=== PATIENT | male | born 1955 | race Caucasian/White ===

== ENCOUNTER 2017-12-25 01:39 | Inpatient (IN) | payer OTHER ==
[2017-12-25] VITALS (13 sets, daily range): BP systolic 136–174; BP diastolic 85–112; PULSE 75–87; TEMP 36.4–37.1; O2SAT 90–96; Ht 177.8 cm; Wt 70.4 kg
[~2017-12-25] VITALS: Ht 177.8 cm; Wt 70.4 kg
[~2017-12-25 01:39] MED LIST: ALPR1TAB3 PO; CMBIN INH; IBUP-1428 PO; OXYC20TA32 PO; TRIA0.1C20 TOP
[2017-12-25] MEDS ORDERED: SODIUM CHLORIDE 0.9% 1000ML 1,000 ML IV STA ×2 (01:51)
[2017-12-25] MEDS ORDERED: MoRPHine SULFATE 4 MG/ML 1 ML CARP\\VIAL IV STA ×2 (01:57→03:13)
[2017-12-25] MEDS ORDERED: ONDANSETRON INJ 2 MG/ML 2 ML VIAL IV STA (01:57)
[2017-12-25] MEDS ORDERED: ALBUT/IPRATROP 3MG/0.5MG NEB 3 ML VIAL INH STA (01:57)
[2017-12-25 02:00] LABS: BASO % 0.2 %; BASO ABS # 0.02 K/uL (0-0.2); EOS % 3.1 %; EOS ABS # 0.26 K/uL (0-0.5); HEMATOCRIT 41.6 % (42-52); HEMOGLOBIN 14.6 g/dL (14.0-18.0); IG# 0.02 K/uL (0.00-0.02); LYMPH ABS # 2.67 K/uL (1.2-3.4); MEAN CELL VOLUME 94.5 fL (80-100); MEAN CORPUSCULAR HEMOGLOBIN 33.2 pg (25-34); MEAN CORPUSCULAR HGB CONC 35.1 g/dl (32-36); MEAN PLATELET VOLUME 10.8 fL (7.4-10.4); MONO % 9.2 %; MONO ABS # 0.77 K/uL (0.11-0.59); NEUT % 55.3 %; PLATELET COUNT 190 K/uL (130-400); RED CELL DISTRIBUTION WIDTH CV 13.8 % (11.5-14.5); RED CELL DISTRIBUTION WIDTH SD 47.6 fL (36.4-46.3); WHITE BLOOD COUNT 8.34 K/uL (4.8-10.8)
[2017-12-25 02:09] LABS: PTT PATIENT 26.2 SECONDS (21.0-31.0)
[2017-12-25 02:17] LABS: ISTAT CREATININE 0.9 mg/dl (0.6-1.3); ISTAT IONIZED CALCIUM 1.13 mmol/l (1.12-1.32); ISTAT POTASSIUM 3.6 mEq/L (3.3-5.0)
[2017-12-25 02:34] LABS: ALKALINE PHOSPHATASE 223 U/L (45-117); ALT/SGPT 157 U/L (12-78); AST/SGOT 196 U/L (15-37); BLOOD UREA NITROGEN 16 mg/dl (7-18); CALCIUM 8.6 mg/dl (8.5-10.1); CARBON DIOXIDE 22 mmol/L (21-32); CREATININE 0.95 mg/dl (0.60-1.40); GLUCOSE 87 mg/dl (70-99); LIPASE 96 U/L (73-393); POTASSIUM 3.5 mmol/L (3.5-5.1); SODIUM 137 mmol/L (136-145); TOTAL PROTEIN 8.1 gm/dl (6.4-8.2)
[2017-12-25] MEDS ORDERED: OPTIRAY 320 IV PRN (03:00)
--- NOTE | 2017-12-25 03:57 | EMERGENCY ROOM VISIT NOTE ---
History First contact with patient: 01:40 Chief Complaint: ABDOMINAL PAIN Stated Complaint: ABDOMINAL PAIN Nursing Triage Summary: refer to triage note History of Present Illness The patient is a 62 year old male who presents to the Emergency Room with complaints of severe worsening abdominal pain for the past several weeks that got worse the past few days who has a history of chronic abdominal pain with multiple abdominal surgeries. Patient also complains of gross hemoptysis for the past day starting early this morning. Patient states he started off with coughing up sputum and then it was been straight blood all day. Patient does smoke. No recent alcohol. No history of GI bleeding in the past. Patient denies nausea, vomiting, diarrhea, chest pain, dyspnea, fever, chills. No risk factors for TB. Patient denies night sweats and weight loss. No prior evaluations for lung carcinoma. No history of blood clots and no recent travel. No leg pain or swelling. Review of Systems An 10 system review of systems was completed with positives and pertinent negatives listed in the HPI. Past Medical/Surgical History Medical Problems: (1) ALCOH DEP NEC/NOS-UNSPEC (2) ALCOHOL WITHDRAWAL (3) ANXIETY STATE NOS (4) ASTHMA, UNSPECIFIED (5) DEPRESSIVE DISORDER NEC (6) DRUG ABUSE NEC-UNSPEC (7) HEPATITIS A W/O COMA (8) HTN (hypertension) (9) MIGRAINE UNSPECIFIED W/O INTRACTABLE MIGRAINE (10) OPIOID ABUSE-UNSPEC Surgical Problems: (1) S/P appendectomy (2) S/P cholecystectomy (3) S/P colostomy (4) S/P colostomy reversal Family History Patient reports no known family medical history. Social History Smoking Status: Current Every Day Smoker Alcohol Use: heavy Drug Use: none Marital Status: single, Housing Status: lives alone Occupation Status: unemployed, disabled Current/Historical Medications No Active Prescriptions or Reported Meds Physical Exam Vital Signs Date Time Temp Pulse Resp B/P (MAP) Pulse Ox O2 Delivery O2 Flow Rate FiO2 12/25/17 03:00 89 18 144/85 92 Room Air 12/25/17 01:50 37.2 95 18 150/96 95 Room Air 12/25/17 01:46 94 Room Air 12/25/17 01:45 103 Physical Exam VITALS: Vitals are noted on the nurse's note and reviewed by myself. Vital signs stable. GENERAL: White male coughing up gross hemoptysis in front of me, in no acute distress, nondiaphoretic, well-developed well-nourished. SKIN: The skin was without rashes, erythema, edema, or bruising. There is no tenting of the skin. Capillary reflex less than 2 seconds. HEAD: Normocephalic atraumatic. EARS: External auditory canals clear, tympanic membranes pearly shipley without erythema or effusion bilaterally. EYES: Pupils equal round and reactive to light and accommodation. Conjunctivae without injection, sclerae without icterus. Extraocular movements intact. NOSE: Patent, turbinates without inflammation or discharge. No sinus tenderness. MOUTH: Mucous membranes mildly dry pharynx without erythema or exudate. Uvula midline. Airway patent. Tongue does not deviate. NECK: Supple without nuchal rigidity. No lymphadenopathy. No thyromegaly. Cervical spine is nontender. No JVD. HEART: Regular rate and rhythm without murmurs gallops or rubs. LUNGS: Diffuse inspiratory and end expiratory wheezes, without rales or rhonchi. No retractions or accessory muscle use. ABDOMEN: Positive bowel sounds x 4. Normal tympanic percussion. Soft, multiple incisional scars present and patient is diffusely tender to palpation, without masses or organomegaly. Chaudhari sign negative. No guarding or rebound tenderness. No CVA tenderness MUSCULOSKELETAL: No muscle atrophy, erythema, or edema noted. NEURO: Patient was alert and oriented to person place and time. Normal sensation to light and sharp touch. No focal neurological deficits. Medical Decision & Procedures Laboratory Results 12/25/17 01:19 Red Blood Count 4.40, Mean Corpuscular Volume 94.5, Mean Corpuscular Hemoglobin 33.2, Mean Corpuscular Hemoglobin Concent 35.1, Mean Platelet Volume 10.8, Neutrophils (%) (Auto) 55.3, Lymphocytes (%) (Auto) 32.0, Monocytes (%) (Auto) 9.2, Eosinophils (%) (Auto) 3.1, Basophils (%) (Auto) 0.2, Neutrophils # (Auto) 4.60, Lymphocytes # (Auto) 2.67, Monocytes # (Auto) 0.77, Eosinophils # (Auto) 0.26, Basophils # (Auto) 0.02 12/25/17 01:19 Test 12/25/17 01:19 12/25/17 01:59 12/25/17 02:03 12/25/17 03:10 White Blood Count 8.34 K/uL (4.8-10.8) Red Blood Count 4.40 M/uL (4.7-6.1) Hemoglobin 14.6 g/dL (14.0-18.0) Hematocrit 41.6 % (42-52) Mean Corpuscular Volume 94.5 fL (80-100) Mean Corpuscular Hemoglobin 33.2 pg (25-34) Mean Corpuscular Hemoglobin Concent 35.1 g/dl (32-36) Platelet Count 190 K/uL (130-400) Mean Platelet Volume 10.8 fL (7.4-10.4) Neutrophils (%) (Auto) 55.3 % Lymphocytes (%) (Auto) 32.0 % Monocytes (%) (Auto) 9.2 % Eosinophils (%) (Auto) 3.1 % Basophils (%) (Auto) 0.2 % Neutrophils # (Auto) 4.60 K/uL (1.4-6.5) Lymphocytes # (Auto) 2.67 K/uL (1.2-3.4) Monocytes # (Auto) 0.77 K/uL (0.11-0.59) Eosinophils # (Auto) 0.26 K/uL (0-0.5) Basophils # (Auto) 0.02 K/uL (0-0.2) RDW Standard Deviation 47.6 fL (36.4-46.3) RDW Coefficient of Variation 13.8 % (11.5-14.5) Immature Granulocyte % (Auto) 0.2 % Immature Granulocyte # (Auto) 0.02 K/uL (0.00-0.02) Prothrombin Time 10.8 SECONDS (9.0-12.0) Prothromb Time International Ratio 1.0 (0.9-1.1) Activated Partial Thromboplast Time 26.2 SECONDS (21.0-31.0) Partial Thromboplastin Ratio 1.0 Estimated GFR () 99.7 Estimated GFR (Non- 86.1 BUN/Creatinine Ratio 17.1 (10-20) Calcium Level 8.6 mg/dl (8.5-10.1) Total Bilirubin 1.2 mg/dl (0.2-1) Direct Bilirubin 0.5 mg/dl (0-0.2) Aspartate Amino Transf (AST/SGOT) 196 U/L (15-37) Alanine Aminotransferase (ALT/SGPT) 157 U/L (12-78) Alkaline Phosphatase 223 U/L (45-117) Lactate Dehydrogenase 229 U/L (87-241) Troponin I < 0.015 ng/ml (0-0.045) Total Protein 8.1 gm/dl (6.4-8.2) Albumin 3.0 gm/dl (3.4-5.0) Lipase 96 U/L (73-393) Bedside Lactic Acid Venous 1.32 mmol/L (0.90-1.70) Bedside Hemoglobin 15.0 g/dl (14.0-18.0) Bedside Hematocrit 44 % (42-52) Bedside Sodium 139 mEq/L (135-144) Bedside Potassium 3.6 mEq/L (3.3-5.0) Bedside Chloride 104 mEq/L (101-112) Bedside Total CO2 22 mEq/l (24-31) Anion Gap 18.0 mmol/L (16-25) Bedside Blood Urea Nitrogen 18 mg/dl (7-18) Bedside Creatinine 0.9 mg/dl (0.6-1.3) Bedside Glucose (other) 93 mg/dl (70-99) Bedside Ionized Calcium (Michelle) 1.13 mmol/l (1.12-1.32) Medications Administered Medications (Trade) Dose Ordered Sig/Norah Route Start Time Stop Time Status Last Admin Dose Admin Sodium Chloride 1,000 ml @ 999 mls/hr Q1H1M STAT IV 12/25/17 01:51 12/25/17 02:51 DC 12/25/17 02:13 999 MLS/HR Albuterol/ Ipratropium (Duoneb) 3 ml NOW STAT INH 12/25/17 01:57 12/25/17 01:58 DC 12/25/17 02:13 3 ML Morphine Sulfate (MoRPHine SULFATE INJ) 4 mg NOW STAT IV 12/25/17 01:57 12/25/17 01:58 DC 12/25/17 02:14 4 MG Ondansetron HCl (Zofran Inj) 4 mg NOW STAT IV 12/25/17 01:57 12/25/17 01:58 DC 12/25/17 02:13 4 MG ED Course Prior records/ancillary studies reviewed. Triage Nursing notes reviewed. Additional history obtained from EMS The patient's history was concerning for hemoptysis and abdominal pain. Differential diagnosis: Etiologies such as lung cancer, PE, TB, airway diseases, diverticulitis, PUD, biliary pathology, UTI, pancreatitis, obstruction, mesenteric ischemia, aortic pathology, infections, inflammatory bowel disease, renal colic, as well as others were entertained. Physical examination findings: As above. ER treatment provided: Morphine, Zofran, n.p.o., IV fluids On reassessment the patient felt better. Diagnostics interpreted by me: ECG: Normal sinus, normal intervals, no acute ST-T wave changes, rate of 94. Left anterior fascicular block. Impression normal sinus rhythm respiratory myself The labs revealed stable H&H. Elevated LFTs. Normal coags. Hepatitis panel sent Imaging studies: Chest x-ray with no free air, pneumothorax or consolidation per my interpretation CT of the chest abdomen and pelvis concerning for bowel obstruction per stat radiology Consultation: A consultation was placed with the hospitalist, Dr. Gale's resident. The case was discussed and diagnostics were reviewed. The patient was evaluated in the ER for further treatment. Exam and history seem consistent with gross hemoptysis and small bowel obstruction. Patient states he had a normal bowel movement today. NG tube deferred to the admitting team per their request. Patient is stable H&H. No pneumonia or PE on CAT scan. He does not have an extensive history of smoking. Patient agrees to treatment plan of admission. He was placed n.p.o. He was hydrated as above. By the evaluation outlined above emergent etiologies such as appendicitis, diverticulitis, PUD, biliary pathology, UTI, pancreatitis, mesenteric ischemia, aortic pathology,inflammatory bowel disease, renal colic, as well as others were deemed relatively unlikely. The pt informed about the findings as listed above. All questions were answered and pleased with the treatment. Case reviewed with my attending The chart was completed utilizing [employer] voice recognition software. Grammatical errors, random word insertions, pronoun errors, and incomplete sentences are an occassional consequence of this system due to software limitations, ambient noise, and hardware issues. Any formal questions or concerns about the content, text, or information contained within the body of this dictation should be directly addressed to the physician optometrist assistant for clarification. Medical Decision As above Medication Reconcilliation Current Medication List: was personally reviewed by me Blood Pressure Screening Patient's blood pressure: Normal blood pressure Impression Primary Impression: Small bowel obstruction Additional Impression: Hemoptysis Departure Information Dispostion Being Evaluated By Hospitalist Condition FAIR Prescriptions No Active Prescriptions or Reported Meds Referrals No Doctor, Assigned (PCP) Patient Instructions My [facility] Problem Qualifiers
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
[2017-12-25] MEDS ORDERED: MAGNESIUM HYDROXIDE SUSP 30 ML UDC PO PRN (05:30)
[2017-12-25] MEDS ORDERED: ONDANSETRON INJ 2 MG/ML 2 ML VIAL IV PRN (05:30)
[2017-12-25] MEDS ORDERED: POLYETHYLENE (MIRALAX) 17 GM PACK PO PRN (05:30)
[2017-12-25] MEDS ORDERED: ALUMINUM/MAGNESIUM/SIMETH (MAALOX MAX) 30 ML UDC PO PRN (05:30)
[2017-12-25] MEDS ORDERED: NITROGLYCERIN 0.4 MG SL PER TAB CHARGE SL PRN (05:30)
[2017-12-25 06:22] LABS: BASO % 0.3 %; BASO ABS # 0.03 K/uL (0-0.2); EOS % 1.8 %; EOS ABS # 0.18 K/uL (0-0.5); HEMATOCRIT 38.8 % (42-52); HEMOGLOBIN 13.5 g/dL (14.0-18.0); IG# 0.03 K/uL (0.00-0.02); LYMPH % 25.7 %; LYMPH ABS # 2.52 K/uL (1.2-3.4); MEAN CELL VOLUME 95.6 fL (80-100); MEAN CORPUSCULAR HEMOGLOBIN 33.3 pg (25-34); MEAN CORPUSCULAR HGB CONC 34.8 g/dl (32-36); MEAN PLATELET VOLUME 10.1 fL (7.4-10.4); MONO % 8.3 %; MONO ABS # 0.81 K/uL (0.11-0.59); NEUT % 63.6 %; NEUT ABS # 6.23 K/uL (1.4-6.5); PLATELET COUNT 155 K/uL (130-400); RED CELL DISTRIBUTION WIDTH CV 13.9 % (11.5-14.5); RED CELL DISTRIBUTION WIDTH SD 48.6 fL (36.4-46.3)
[2017-12-25] MEDS ORDERED: PANTOprazole INJ 80 MG in DEXTROSE 5% 100ML IV ONE (06:30)
[2017-12-25] MEDS ORDERED: LORAZEPAM 2 MG/ML 1 ML VIAL IV PRN (06:30)
[2017-12-25 06:40] LABS: ALBUMIN 2.8 gm/dl (3.4-5.0); CALCIUM 7.9 mg/dl (8.5-10.1); CREATININE 0.87 mg/dl (0.60-1.40); POTASSIUM 3.7 mmol/L (3.5-5.1); TOTAL PROTEIN 7.3 gm/dl (6.4-8.2)
[2017-12-25] MEDS ORDERED: PIPERACILL/TAZOBAC CONSULT ACTIVE PRN (06:45)
[2017-12-25] MEDS ORDERED: PANTOprazole INJ 40 MG in DEXTROSE 5% 100ML IV SCH (06:45)
[2017-12-25] MEDS ORDERED: PIPERACILLIN/TAZOBACTAM 4.5 GM/100ML D5W IV STA (06:52)
--- NOTE | 2017-12-25 07:14 | DIAGNOSTIC IMAGING REPORT ---
CHEST ONE VIEW PORTABLE CLINICAL HISTORY: 62 years-old Male presenting with gross hemoptysis. TECHNIQUE: Portable upright AP view of the chest was obtained. COMPARISON: 09/26/2011 and 02/12/2012. FINDINGS: Cardiomediastinal silhouette normal. Lungs and pleural spaces clear. Postsurgical changes of the left bony glenoid, unchanged. Upper abdomen normal. IMPRESSION: 1. No acute cardiopulmonary disease. Electronically signed by: Jakob Gillette M.D. 12/25/2017 7:12 AM Dictated Date/Time: 12/25/2017 7:11 AM
--- NOTE | 2017-12-25 07:26 | DIAGNOSTIC IMAGING REPORT ---
ABD/PELVIS IV CONTRAST ONLY CLINICAL HISTORY: 62 years-old Male presenting with lower abd pain, mult ORs. TECHNIQUE: Multidetector CT of the abdomen and pelvis was performed after the administration of intravenous contrast. IV contrast: 94 mL of Optiray 320. A dose lowering technique was used consistent with the principles of ALARA (as low as reasonably achievable). COMPARISON: 04/26/2014. CT DOSE (mGy.cm): The estimated cumulative dose is 571.13 inclusive of the CTA chest. 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 Lung bases: Bronchial wall thickening. No focal infiltrate. Trace emphysematous changes. Normal heart size. Mitral annular calcification. No pericardial or pleural effusion. Liver: Normal morphology. Density suggestive of hepatic steatosis. No focal lesion. Patent hepatic vasculature. Biliary: Mild biliary ductal prominence likely a reservoir effect in the post cholecystectomy state. Gallbladder surgically absent. Pancreas: Mild parenchymal atrophy. Mild prominence of the pancreatic duct the level of the pancreatic head without evidence of an obstructing mass or calculus. Spleen: Deformed appearance of the spleen may suggest splenosis or prior injury or infarct. Adrenal glands: Normal. Kidneys and ureters: Normal. No hydronephrosis. Bladder: Incompletely evaluated secondary to underdistention. Pelvic organs: Prostate enlargement likely secondary to benign prostatic hyperplasia. Bowel: Diverticulosis of the sigmoid and distal descending colon. A suture line may be present in the sigmoid colon versus curvilinear calcification (series 6 image 324). No colonic wall thickening or pericolonic inflammatory change. Fluid in the rectum may suggest a diarrheal state. Mild wall thickening of the distal esophagus. Small duodenal diverticula may be present at the level of the pancreatic head. Proximal small bowel is distended measuring up to 4.3 cm in diameter. No evidence of wall thickening or perienteric inflammatory change. Small bowel is dilated to the level of the mid abdomen (series 6 image 177). No gross evidence of mass or inflammatory change at this site. Presumably this may represent a site of adhesions. Several nondistended loops of small bowel in the mid to lower abdomen are in direct apposition with the anterior peritoneum, which may suggest adhesions in this region. Peritoneal cavity: No free fluid or intraperitoneal gas. Lymph nodes: No enlarged lymph nodes in the abdomen or pelvis. Vasculature: Atherosclerosis of the normal caliber abdominal aorta. IVC patent. Abdominal wall: Diastasis of the rectus abdominis. Postsurgical changes of the ventral abdominal wall with multiple radiodense sutures. Several curvilinear metallic foreign bodies may also represent suture material (series 6 image 270). Musculoskeletal: Postsurgical changes of the right femoral neck and proximal metadiaphysis from prior intramedullary nail fixation. Mild degenerative changes of the lower lumbar spine. IMPRESSION: 1. Proximal small bowel distention to the level of the mid abdomen concerning for small bowel obstruction secondary to adhesions. 2. Postsurgical changes of the abdominal wall with several curvilinear metallic foreign bodies likely representing suture material as marked on the images. 3. Bronchial wall thickening and trace emphysematous changes at the lung bases may suggest smoking related lung injury. Electronically signed by: Jakob Gillette M.D. 12/25/2017 7:24 AM Dictated Date/Time: 12/25/2017 7:12 AM
[2017-12-25] MEDS ORDERED: MULTI-VITAMIN INFUSION INJ 10 ML, THIAMINE HCL INJ 100 MG, FoLIC ACID INJ 1 MG in SODIU... IV ONE (07:30)
--- NOTE | 2017-12-25 07:30 | DIAGNOSTIC IMAGING REPORT ---
(CHEST FOR PE) ANGIO WITH CT DOSE: 571.13 mGy.cm HISTORY: 62 years-old Male presents with acute hemoptysis TECHNIQUE: Multiple CTA images of the chest were obtained after the intravenous administration of 94 ml Optiray 320. Coronal and sagittal MIPS were obtained from the axial data set and were submitted for review. A dose lowering technique was utilized adhering to the principles of ALARA. COMPARISON: Chest radiograph 12/25/2017, CT abdomen and pelvis 12/25/2017, CT chest 06/25/2010. FINDINGS: CTA: Heart is normal in size without pericardial effusion. Coronary arterial calcifications are noted. The thoracic aorta is normal in both course and caliber without aneurysm or dissection identified. Imaged great vessels appear patent. Mild to moderate mixed plaquing of the thoracic aorta. The pulmonary arterial tree is opacified to the level of the subsegmental branches and demonstrates no focal filling defects to suggest pulmonary thromboembolic disease. CT CHEST: No dominant thyroid nodule. No pathologically enlarged lymph nodes by CT size criteria. Mildly prominent AP window lymph node measures 1.8 x 0.8 cm. 8 mm subcarinal and 7 mm right hilar lymph nodes are also noted. Pleural thickening of the left lung apex. Moderate emphysema. Moderate bilateral bronchial wall thickening. There are multiple scattered solid pulmonary nodules of the lungs bilaterally measuring up to 4 mm along with normal-appearing per-fissural lymph nodes. (Please see bookmarks), for example solid 4 mm nodule the right upper lobe as seen on image 231 series 4. 4 mm groundglass nodule of the lingula, 138 series 4. Central airways demonstrate mild layering mucosal secretions. No pneumothorax, pleural effusion or overt pulmonary edema. Prior cholecystectomy. Hepatic steatosis. Suggestion of mild wall thickening of the distal esophagus. Bones appear intact. IMPRESSION: 1. No acute aortic pathology or evidence of pulmonary thromboembolic disease. 2. Moderate emphysema with bilateral bronchial wall thickening suggesting bronchitis. No lobar airspace consolidation. 3. Multiple bilateral solid pulmonary nodules, most of which measure in the 2-3 mm range and measure up to 4 mm. Additionally, there is a single groundglass 4 mm nodule of the inferior segment lingula. Follow-up guidelines are provided below. 4. Prior cholecystectomy. 5. Hepatic steatosis. 6. Mild wall thickening of the distal esophagus. This could be correlated with endoscopy if of further clinical concern. Please refer to below summary of Fleischner criteria recommendations for follow-up of incidental CT nodules (Festus Ruano, Guidelines for management of small pulmonary nodules detected on CT scans: A statement from the Fleischner Society, Radiology 237: [phone].) SOLID NODULES Multiple nodules size: <6 mm * Low risk patients: no routine follow-up * high risk patients: optional CT at 12 months Note: newly detected indeterminate nodule in persons 35 years of age or older. * Low risk patients: minimal or absent history of smoking and/or other known risk factors * high risk patients: history of smoking or of other known risk factors (e.g. first degree relative with lung cancer, or exposure to asbestos, radon, uranium) * if a nodule up to 8 mm is partly solid or is ground glass further follow-up is required after 24 months to exclude possible slow growing adenocarcinoma (HARSHIL) SUBSOLID NODULES Solitary pure ground-glass nodule * nodule size <6 mm - no CT follow-up required * nodule size >=6 mm - follow-up CT at 6-12 months, then every 2 years until 5 years The above report was generated using voice recognition software. It may contain grammatical, syntax or spelling errors. Electronically signed by: Tj Steen M.D. 12/25/2017 7:29 AM Dictated Date/Time: 12/25/2017 7:19 AM
[2017-12-25] MEDS ORDERED: THIAMINE HCL INJ 100 MG in SYRINGE 9 ML IV ONE (08:00)
[2017-12-25] MEDS ORDERED: ALBUT/IPRATROP 3MG/0.5MG NEB 3 ML VIAL INH SCH (08:00)
[2017-12-25] MEDS ORDERED: MoRPHine SULFATE 4 MG/ML 1 ML CARP\\VIAL ONE (08:52)
[2017-12-25] MEDS ORDERED: NICOTINE 14 MG/24 HR TDSY TD SCH (09:00)
[2017-12-25] MEDS ORDERED: OXYMETAZOLINE HCL 0.05% NA SPR 15 ML BTL PRN (09:00)
[2017-12-25] MEDS ORDERED: SODIUM CHLORIDE 0.9% 1000ML 1,000 ML IV SCH (09:32)
--- NOTE | 2017-12-25 09:40 | Family Medicine Progress Note ---
Progress Note Date of Service December 25, 2017. Subjective Pt evaluation today including: conversation w/ patient, physical exam, chart review, lab review Currently notes he is still having abdominal pain No new issues since arrival to floor Admits to drinking 3-4 pints of beer daily. Last drink was 4 days ago. Denies any ssx of withdrawal Notes he took 1 Oxycontin that was previously prescribed at home before coming to the hospital to be evaluated. Denies any significant Tylenol or NSAID use prior to arrival Notes he continues to cough blood intermittently. No clots. No associated chest pain. Not sure if it comes from the nose or down in the lungs. Denies shortness of breath. States he smokes cigarettes. Previously 1 pack per day for many years but now is down to 5 cigarettes per day. Additional Comments: A 10 point review of systems was negative unless stated above. Medications Current Inpatient Medications Medications (Trade) Dose Ordered Sig/Norah Route Start Time Stop Time Status Last Admin Dose Admin Ioversol (Optiray 320) 94 ml UD PRN IV 12/25/17 03:00 12/29/17 02:59 Sodium Chloride 1,000 ml @ 100 mls/hr Q10H IV 12/25/17 09:32 01/24/18 09:31 12/25/17 10:25 100 MLS/HR Al Hydrox/Mg Hydrox/Simethicone (Maalox Max Susp) 15 ml Q4H PRN PO 12/25/17 05:30 01/24/18 05:29 Magnesium Hydroxide (Milk Of Magnesia Susp) 30 ml Q12H PRN PO 12/25/17 05:30 01/24/18 05:29 Ondansetron HCl (Zofran Inj) 4 mg Q6H PRN IV 12/25/17 05:30 01/24/18 05:29 Nitroglycerin (Nitrostat Tab) 0.4 mg UD PRN SL 12/25/17 05:30 01/24/18 05:29 Polyethylene (Miralax Powder Packet) 17 gm DAILY PRN PO 12/25/17 05:30 01/24/18 05:29 Pantoprazole Sodium 40 mg/ Dextrose 100 ml @ 20 mls/hr Q5H IV 12/25/17 06:45 01/24/18 06:44 12/25/17 07:22 20 MLS/HR Lorazepam (Ativan Inj) 1 mg ONE PRN IV 12/25/17 06:30 Thiamine HCl 100 mg/Syringe 10 ml @ 2 mls/min Q24H IV 12/26/17 09:00 01/25/18 08:59 Nicotine (Nicoderm Cq 14MG Patch) 1 patch QAM TD 12/25/17 09:00 01/24/18 08:59 12/25/17 08:30 1 PATCH Miscellaneous (Remove Nicoderm Patch) 1 ea HS N/A 12/25/17 21:00 01/24/18 20:59 Piperacillin Sod/ Tazobactam Sod 3.375 gm/Dextrose 115 ml @ 28.75 mls/ hr Q8H IV 12/25/17 14:00 01/04/18 13:59 Miscellaneous Information (Consult) 1 ea UD PRN N/A 12/25/17 06:45 01/24/18 06:44 Morphine Sulfate (MoRPHine SULFATE INJ) 4 mg Q4H PRN IV 12/25/17 08:30 01/08/18 08:29 Oxymetazoline HCl (Afrin 0.05% Nasal [place]) 2 sprays Q6H PRN NA 12/25/17 09:00 01/24/18 08:59 12/25/17 09:45 2 SPRAYS Albuterol/ Ipratropium (Combivent Respimat Inh) 2 puffs BID INH 12/25/17 21:00 01/24/18 20:59 Albuterol/ Ipratropium (Duoneb) 3 ml Q2H PRN INH 12/25/17 09:45 01/24/18 09:44 Objective Vital Signs Date Time Temp Pulse Resp B/P (MAP) Pulse Ox O2 Delivery O2 Flow Rate FiO2 12/25/17 07:34 79 16 95 Room Air 12/25/17 07:15 36.9 87 18 166/100 94 Room Air 12/25/17 06:09 89 18 149/94 94 Room Air 12/25/17 05:07 83 12/25/17 05:00 89 18 138/80 94 Room Air 12/25/17 03:00 89 18 144/85 92 Room Air 12/25/17 01:50 37.2 95 18 150/96 95 Room Air 12/25/17 01:46 94 Room Air 12/25/17 01:45 103 Physical Exam General Appearance: WD/WN, no apparent distress, + pertinent finding (hoarse voice) Eyes: normal inspection, EOMI ENT: hearing grossly normal, pharynx normal (small amt of blood in posterior pharynx), + pertinent finding (blood in right nare) Neck: supple, no adenopathy, no JVD Respiratory/Chest: lungs clear, no respiratory distress Cardiovascular: regular rate, rhythm, no gallop, no murmur Abdomen: normal bowel sounds, non tender, soft, + pertinent finding (multiple old surgical scars) Extremities: non-tender, no pedal edema Neurologic/Psychiatric: alert, normal mood/affect, oriented x 3 Skin: normal color, warm/dry, no rash Lymphatic: no adenopathy Assessment and Plan 62 year old male with history of tobacco abuse, chronic alcohol use, who presents with 4 days of abdominal pain and 1 day of hemoptysis. Abdominal pain likely related to SBO vs Ileus. He will be worked up for hemoptysis. Our plan for him is as follows: - Small Bowel Obstruction: Surgery consulted, recommendation appreciated. Continue NPO and IVF at maintenance. No indication for NG tube at this time. Examination overall benign at this time, can obtain KUB if failure to improve. Will get Morphine 4 mg q4h and we can titrate accordingly. No evidence of intra -abdominal infection, will D/C Zosyn. - Hemoptysis: Patient has a history of smoking, malignancy cannot be ruled-out, though there is no clear evidence of this on CT. May be coming from the nose. Afrin nasal spray given empirically. Pulmonology consulted and plan for possible bronchoscopy today. Avoid anticoagulants. Consider smoulder bronchitis. Will D/C Zosyn and start PO Levaquin. - Esophageal thickening on CT: With history of alcohol use and smoking, consider esophageal varices vs esophageal malignancy. Consult GI for consideration for EGD. - Transaminitis: Based on history, seems consistent with daily alcohol use. Recommend alcohol cessation. Will check viral hepatitis panel. - History of Smoking: Patient denies ay history of COPD, CT does show emphysematous change consistent with this. He is on Combivent at home which we will continue in-house. Patient may benefit from outpatient PFTs to confirm diagnosis. - History of Alcohol Use: 15 units per week, per patient. On AWSS at-risk protocol. Vitamin supplementation - DVT prophylaxis: SCD and TEDs. Pharmacological means are contra-indicated due to hemoptysis - Code Status: Level I full Code - Disposition: Telemetry. If he remains stable post-bronch, can consider transfer later today. Continued [facility] stay due to: home environment unsafe for pt Discharge planning: uncertain
[2017-12-25] MEDS ORDERED: ALBUT/IPRATROP 3MG/0.5MG NEB 3 ML VIAL INH PRN ×2 (09:45→16:15)
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
[2017-12-25] MEDS ORDERED: IPRA1AER2 INH (10:19)
[2017-12-25] MEDS ORDERED: LEVOFLOXACIN 750 MG TAB PO SCH (11:00)
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
[2017-12-25] MEDS: MoRPHine SULFATE 4 MG/ML 1 ML CARP\\VIAL IV PRN ×3 (13:04→20:49)
--- NOTE | 2017-12-25 13:04 | Pre Sedation Assessment ---
Pre Sedation Assessment General Date of Sedation: December 25, 2017. Vital Signs Past 12 Hours Date Time Temp Pulse Resp B/P (MAP) Pulse Ox O2 Delivery O2 Flow Rate FiO2 12/25/17 11:58 Nasal Cannula 2.0 12/25/17 11:22 36.8 79 22 137/85 (102) 90 Room Air 12/25/17 07:34 79 16 95 Room Air 12/25/17 07:15 36.9 87 18 166/100 94 Room Air 12/25/17 06:09 89 18 149/94 94 Room Air 12/25/17 05:07 83 12/25/17 05:00 89 18 138/80 94 Room Air 12/25/17 03:00 89 18 144/85 92 Room Air 12/25/17 01:50 37.2 95 18 150/96 95 Room Air 12/25/17 01:46 94 Room Air 12/25/17 01:45 103 Review Cardiovascular: regular rate, rhythm, no edema, no gallop, no JVD, no murmur, normal peripheral pulses Lungs: + rhonchi Pre-Sedation Airway Assessment Smoking Status: Current Every Day Smoker Hx of Sleep Apnea: No Hx of difficult intubation: No Short Thick Neck: No Thyro-mental Distance: > 3 Finger Breadths Oral Cavity: Dentures, WNL ASA Classification: Class III Procedure Planning Contraindications for Sedation: None Current Medications Reviewed: Yes Notes The planned sedation has been discussed with the patient. Informed Consent was obtained. I have identified the patient, determined the appropriateness of sedation and have assessed the patient immediately prior to the procedure. All medicine(s) and interventions are by my order.
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
[2017-12-25] MEDS ORDERED: PIPERACILL/TAZOBAC IV 3.375 GM in DEXTROSE 5% 100ML 100 ML IV SCH (14:00)
[2017-12-25] MEDS ORDERED: DEXTROSE 5% 1000ML 1,000 ML IV SCH (14:30)
[2017-12-25] MEDS ORDERED: NURSING VERBAL MED ORDER ONE ×2 (14:30→18:30)
[2017-12-25] MEDS ORDERED: MIDAZOLAM HCL 5 MG/ML 1 ML VIAL IV ONE (14:53)
[2017-12-25] MEDS ORDERED: FENTANYL CITRATE INJ 50 MCG/1 ML 2 ML VIAL IV ONE (14:53)
[2017-12-25] MEDS ORDERED: OXYMETAZOLINE HCL 0.05% NA SPR 15 ML BTL ONE (14:53)
[2017-12-25] MEDS ORDERED: LEVALBUTEROL 1.25MG/3ML NEB INH ONE (14:53)
[2017-12-25] MEDS ORDERED: LIDOCAINE 4% INH SOLN 4 ML BTL TOP ONE (14:53)
[2017-12-25] MEDS ORDERED: LIDOCAINE VISCOUS 2% 100ML TOP ONE (14:53)
--- NOTE | 2017-12-25 14:58 | Bronchoscopy Procedure Note ---
Bronchoscopy Procedure Note Procedure: Bronchoscopy, conscious sedation, bronchial washing Consent: Obtained through the patient placed into the chart Pre-procedural diagnosis: hemoptysis Post-procedural diagnosis: hemoptysis Start time: 1439 End time: 1449 Total time: 10 minutes Analgesia: 2% liquid lidocaine: Via nebulizer 4% gel lidocaine: Via right naris 2% liquid lidocaine: Via bronchoscopy Sedation: Versed IV: 125 mg Fentanyl IV: 5 g Procedure: The Olympus video bronchoscope was used for this procedure and passed down to the oropharynx and then retroflexed off the soft palate Maribel/posterior naris/posterior oropharynx: Minimal bleeding appreciated from the left naris is notably atrophied down the posterior nasal wall Bronchoscope was then passed down to the left and right naris anteriorly and there was a notable site of clotted minimal bleeding appreciated in the left naris above the inferior turbinate Glottis: Anatomically within normal limits, blood noted around the epiglottis Vocal cords: Proper abduction and abduction, anatomically within normal limits Subglottis/trachea/Cathleen: Anatomically within normal limits, diffuse blood along the posterior wall Right bronchial tree: Right mainstem bronchus: Anatomically within normal limits Right upper lobe: Anatomically within normal limits, minimal blood appreciated Bronchus intermedius: Anatomically within normal limits Right middle lobe: Anatomically within normal limits, notable bloody mucous plugs Right lower lobe: Anatomically within normal limits, notable blood appreciated coming from the basal pyramids and possible the lateral subsegment of the right lower lobe I did wash aggressively but was unable to clear these regions of blood Left bronchial tree: Left mainstem bronchus: Anatomically within normal limits Left upper lobe: Anatomically within normal limits Lingula: Anatomically within normal limits Left lower lobe: Anatomically within normal limits Findings: Minimal blood appreciated especially along the posterior wall on the left lower lobe but able to clear, no signs of active bleeding Bronchial alveolar lavage: Right lower lobe EBL: Active bleeding no blood loss secondary to the procedure itself bleeding from the left naris as well as right lower lobe Complications: None Follow-up: [facility]SU
--- NOTE | 2017-12-25 15:00 | Post Sedation Assessment ---
Post Sedation Assessment General Date of Sedation December 25, 2017. Vital Signs: Vital Signs Past 12 Hours Date Time Temp Pulse Resp B/P (MAP) Pulse Ox O2 Delivery O2 Flow Rate FiO2 12/25/17 14:50 97 18 180/111 97 Mask 6 12/25/17 14:45 96 14 174/108 96 Mask 6 12/25/17 14:40 87 15 173/101 98 Mask 6 12/25/17 14:35 89 20 181/105 100 Mask 6 12/25/17 14:30 82 16 189/112 100 Mask 6 12/25/17 14:19 Room Air 12/25/17 11:58 Nasal Cannula 2.0 12/25/17 11:22 36.8 79 22 137/85 (102) 90 Room Air 12/25/17 07:34 79 16 95 Room Air 12/25/17 07:15 36.9 87 18 166/100 94 Room Air 12/25/17 06:09 89 18 149/94 94 Room Air 12/25/17 05:07 83 12/25/17 05:00 89 18 138/80 94 Room Air Post Procedure Recovery Score Activity: (2) Moves 4 extremities * Respiration: (2) Deep breath/cough Circulation: (1) +/-20-49% PreAnes Sharon Consciousness: (2) Fully Awake Oxygen Saturation: (1) O2 needed for >90% Post Anesthesia Score: 8 Discharge Sedation Level of Care: Fast Track Phase II Post Sedation Plan On clinical assessment, the patient appears to have tolerated the sedation without complications. Patient is recovering as anticipated. Patient will continue to be monitored by nursing and may be discharged when sedation discharge criteria are met per below protocol. Upon Completions of procedure and additional 15 minutes continue every 5 minute vital signs and the P.A.R. score; then discharge to a Phase I or Fast Track to Phase II per the following guidelines: * Discharge Patient to appropriate Phase II area if PAR is 8 or greater or return to pre- procedure baseline. The post - procedure orders will be as directed. * If PAR score is less than 8 or not return to pre-procedure baseline then patient will follow Phase I monitoring till PAR is reached for Phase II. The Phase I may be done in procedure room or may call to secure a Phase I area. * If naloxone or flumazenil are used for reversal, hold in Phase I for an additional 60 -120 minutes before discharge to Phase II. Please call the Sedation Physician to re-evaluate and complete post-note for discharge to Phase II area. Do NOT discharge from procedure sedation or Phase 1 until post- sedation evaluation note is complete by procedure /sedation MD Sedation Discharge Instructions to be given to the patient at discharge to home.
[2017-12-25] MEDS ORDERED: METHYLPREDNISOLONE IV 125 MG in SYRINGE 0 ML IV ONE (15:30)
[2017-12-25 15:48] LABS: BASO % 0.3 %; BASO ABS # 0.02 K/uL (0-0.2); EOS % 2.4 %; EOS ABS # 0.16 K/uL (0-0.5); HEMATOCRIT 37.3 % (42-52); HEMOGLOBIN 12.7 g/dL (14.0-18.0); IG# 0.01 K/uL (0.00-0.02); LYMPH % 29.7 %; LYMPH ABS # 1.96 K/uL (1.2-3.4); MEAN CELL VOLUME 96.4 fL (80-100); MEAN CORPUSCULAR HEMOGLOBIN 32.8 pg (25-34); MEAN PLATELET VOLUME 10.7 fL (7.4-10.4); MONO % 7.7 %; MONO ABS # 0.51 K/uL (0.11-0.59); NEUT % 59.7 %; NEUT ABS # 3.94 K/uL (1.4-6.5); PLATELET COUNT 158 K/uL (130-400); RED CELL DISTRIBUTION WIDTH CV 14.2 % (11.5-14.5); RED CELL DISTRIBUTION WIDTH SD 50.1 fL (36.4-46.3)
[2017-12-25 15:56] LABS: INR 1.1 (0.9-1.1); PTT PATIENT 27.6 SECONDS (21.0-31.0)
[2017-12-25 16:05] LABS: ALBUMIN 2.8 gm/dl (3.4-5.0); CREATININE 0.84 mg/dl (0.60-1.40); POTASSIUM 3.5 mmol/L (3.5-5.1)
--- NOTE | 2017-12-25 16:49 | Progress Note ---
Progress Note Date of Service December 25, 2017. Progress Note [facility] [place] possible [place]. The patient has hemoptysis with concern for active bleeding from the right lower lobe based on bronchoscopy findings from earlier on today. I spoke with pulmonary release and technical records clerk and cardiovascular interventional radiologist. I discussed issue with ongoing hemoptysis with estimate of coughing 1 tsp - 1 tbsp several times an hour for the past 2 hours. I requested transfer for consideration for embolization or pulmonary resection. In discussing case it was felt that patient should continue to be monitored here and [facility] [place] and transfer could be done if patient worsens. I requested they speak directly with our pulmonary service in addition to our conversation to get clarification on the procedure and findings. They recommend additional work-up including ENT consultation, bubble study and CT angiogram. I discussed the case with ICU who will accept to patient for overnight monitoring. In the meantime, I have added IV solu-medrol and change Levaquin to IV. I have added Duoneb treatments q4h. I have spoken with patient who is aware of the plan.
[2017-12-25] MEDS: D5W AND 1/2NSS 1,000 ML IV SCH ×2 (17:02→20:47)
--- NOTE | 2017-12-25 17:09 | Critical Care Consultation ---
Critical Care Consultation Date of Consultation: December 25, 2017. Attending Physician: Christiano Moy D.O. Reason for Consultation: Monitor patient's vitals History of Present Illness 62 year old is transferred to the ICU with hemoptysis and SBO. The patient was seen by pulmonology today, with a bronchoscopy showing significant bleeding in the right lower lobe. Pulmonary and inpatient hospitalist team are in the process of coordinating transfer to a tertiary center for possible IR embolization procedure. In the meantime, the patient will be monitored closely in the ICU. Past Medical/Surgical History HTN, COPD, alcohol, tobacco and drug abuse Family History Patient reports no known family medical history. Social History Smoking Status: Current Every Day Smoker Drug Use: none Marital Status: Housing Status: lives alone Occupation Status: disabled Allergies Coded Allergies: Grape (Verified Allergy, Unknown, SWELLING, 04/04/16) Home Medications Scheduled Ipratropium-Albuterol (Combivent Respimat), 2 PUFFS INH BID Nicotine (Nicoderm Cq 14MG Patch), 1 PATCH TD QAM Scheduled PRN Ipratropium-Albuterol (Duoneb), 3 ML INH Q4H PRN for SOB or wheezing Current Inpatient Medications Current Inpatient Medications Medications (Trade) Dose Ordered Sig/Norah Route Start Time Stop Time Status Last Admin Dose Admin Ioversol (Optiray 320) 94 ml UD PRN IV 12/25/17 03:00 12/29/17 02:59 Al Hydrox/Mg Hydrox/Simethicone (Maalox Max Susp) 15 ml Q4H PRN PO 12/25/17 05:30 01/24/18 05:29 Magnesium Hydroxide (Milk Of Magnesia Susp) 30 ml Q12H PRN PO 12/25/17 05:30 01/24/18 05:29 Ondansetron HCl (Zofran Inj) 4 mg Q6H PRN IV 12/25/17 05:30 01/24/18 05:29 Nitroglycerin (Nitrostat Tab) 0.4 mg UD PRN SL 12/25/17 05:30 01/24/18 05:29 Polyethylene (Miralax Powder Packet) 17 gm DAILY PRN PO 12/25/17 05:30 01/24/18 05:29 Lorazepam (Ativan Inj) 1 mg ONE PRN IV 12/25/17 06:30 Thiamine HCl 100 mg/Syringe 10 ml @ 2 mls/min Q24H IV 12/26/17 09:00 01/25/18 08:59 Nicotine (Nicoderm Cq 14MG Patch) 1 patch QAM TD 12/25/17 09:00 01/24/18 08:59 12/25/17 08:30 1 PATCH Miscellaneous (Remove Nicoderm Patch) 1 ea HS N/A 12/25/17 21:00 01/24/18 20:59 Morphine Sulfate (MoRPHine SULFATE INJ) 4 mg Q4H PRN IV 12/25/17 08:30 01/08/18 08:29 12/25/17 16:49 4 MG Oxymetazoline HCl (Afrin 0.05% Nasal [place]) 2 sprays Q6H PRN NA 12/25/17 09:00 01/24/18 08:59 12/25/17 09:45 2 SPRAYS Albuterol/ Ipratropium (Combivent Respimat Inh) 2 puffs BID INH 12/25/17 21:00 01/24/18 20:59 Albuterol/ Ipratropium (Duoneb) 3 ml Q2H PRN INH 12/25/17 09:45 01/24/18 09:44 Pantoprazole Sodium 40 mg/ Syringe 10 ml @ 5 mls/min DAILY@ IV 12/25/17 21:00 01/24/18 20:59 Dextrose 1,000 ml @ 25 mls/hr Q24H IV 12/25/17 14:30 01/24/18 14:29 Albuterol/ Ipratropium (Duoneb) 3 ml Q4H PRN INH 12/25/17 16:15 01/24/18 16:14 Methylprednisolone Sodium Succinate 60 mg/Syringe 0.96 ml @ 1.5 mls/min Q8H IV 12/25/17 20:00 01/24/18 19:59 Dextrose/Sodium Chloride 1,000 ml @ 125 mls/hr Q8H IV 12/25/17 16:15 01/24/18 16:14 Levofloxacin 750 mg/Prmx 150 ml @ 100 mls/hr Q24H IV 12/26/17 09:00 01/02/18 08:59 Review of Systems A 10 point review of systems was negative unless stated above. Physical Exam Date Time Temp Pulse Resp B/P (MAP) Pulse Ox O2 Delivery O2 Flow Rate FiO2 12/25/17 16:30 36.8 85 20 174/99 (124) 96 Room Air 12/25/17 16:00 36.4 82 20 162/93 (116) 96 Nasal Cannula 2.0 12/25/17 15:30 36.4 81 20 150/89 (109) 90 Room Air 12/25/17 15:28 Oxymask 12/25/17 15:05 84 18 158/97 94 Nasal Cannula 4 12/25/17 15:00 88 16 165/99 94 Nasal Cannula 4 12/25/17 14:55 89 16 157/100 95 Nasal Cannula 4 12/25/17 14:50 97 18 180/111 97 Mask 6 12/25/17 14:45 96 14 174/108 96 Mask 6 12/25/17 14:40 87 15 173/101 98 Mask 6 12/25/17 14:35 89 20 181/105 100 Mask 6 12/25/17 14:30 82 16 189/112 100 Mask 6 12/25/17 14:19 Room Air 12/25/17 11:58 Nasal Cannula 2.0 12/25/17 11:22 36.8 79 22 137/85 (102) 90 Room Air 12/25/17 07:34 79 16 95 Room Air 12/25/17 07:15 36.9 87 18 166/100 94 Room Air 12/25/17 06:09 89 18 149/94 94 Room Air 12/25/17 05:07 83 12/25/17 05:00 89 18 138/80 94 Room Air 12/25/17 03:00 89 18 144/85 92 Room Air 12/25/17 01:50 37.2 95 18 150/96 95 Room Air 12/25/17 01:46 94 Room Air 12/25/17 01:45 103 General Appearance: well-appearing, no apparent distress Eyes: PERRLA, EOMI Neck: normal range of motion, no tenderness, trachea midline Respiratory: no respiratory distress, no tenderness, rhonchi, wheezing Cardiovasular: regular rate/rhythm, normal S1S2, no M/G/R, no murmur Abdomen: non tender, normal bowel sounds, no rebound Lower Extremities: no edema Neuro: alert, oriented x 3 Laboratory Results Last 24 Hours Test 12/25/17 01:19 12/25/17 01:59 12/25/17 02:03 12/25/17 03:10 White Blood Count 8.34 K/uL Red Blood Count 4.40 M/uL Hemoglobin 14.6 g/dL Hematocrit 41.6 % Mean Corpuscular Volume 94.5 fL Mean Corpuscular Hemoglobin 33.2 pg Mean Corpuscular Hemoglobin Concent 35.1 g/dl Platelet Count 190 K/uL Mean Platelet Volume 10.8 fL Neutrophils (%) (Auto) 55.3 % Lymphocytes (%) (Auto) 32.0 % Monocytes (%) (Auto) 9.2 % Eosinophils (%) (Auto) 3.1 % Basophils (%) (Auto) 0.2 % Neutrophils # (Auto) 4.60 K/uL Lymphocytes # (Auto) 2.67 K/uL Monocytes # (Auto) 0.77 K/uL Eosinophils # (Auto) 0.26 K/uL Basophils # (Auto) 0.02 K/uL RDW Standard Deviation 47.6 fL RDW Coefficient of Variation 13.8 % Immature Granulocyte % (Auto) 0.2 % Immature Granulocyte # (Auto) 0.02 K/uL Prothrombin Time 10.8 SECONDS Prothromb Time International Ratio 1.0 Activated Partial Thromboplast Time 26.2 SECONDS Partial Thromboplastin Ratio 1.0 Sodium Level 137 mmol/L Potassium Level 3.5 mmol/L Chloride Level 106 mmol/L Carbon Dioxide Level 22 mmol/L Anion Gap 9.0 mmol/L 18.0 mmol/L Blood Urea Nitrogen 16 mg/dl Creatinine 0.95 mg/dl Estimated GFR () 99.7 Estimated GFR (Non- 86.1 BUN/Creatinine Ratio 17.1 Random Glucose 87 mg/dl Calcium Level 8.6 mg/dl Total Bilirubin 1.2 mg/dl Direct Bilirubin 0.5 mg/dl Aspartate Amino Transf (AST/SGOT) 196 U/L Alanine Aminotransferase (ALT/SGPT) 157 U/L Alkaline Phosphatase 223 U/L Lactate Dehydrogenase 229 U/L Troponin I < 0.015 ng/ml Total Protein 8.1 gm/dl Albumin 3.0 gm/dl Lipase 96 U/L Bedside Lactic Acid Venous 1.32 mmol/L Bedside Hemoglobin 15.0 g/dl Bedside Hematocrit 44 % Bedside Sodium 139 mEq/L Bedside Potassium 3.6 mEq/L Bedside Chloride 104 mEq/L Bedside Total CO2 22 mEq/l Bedside Blood Urea Nitrogen 18 mg/dl Bedside Creatinine 0.9 mg/dl Bedside Glucose (other) 93 mg/dl Bedside Ionized Calcium (Michelle) 1.13 mmol/l Ethyl Alcohol mg/dL < 3.0 mg/dl Hepatitis B Surface Antigen NEG Hepatitis C Antibody Screen PRELIM POS Test 12/25/17 03:25 12/25/17 06:12 12/25/17 13:09 12/25/17 14:06 Urine Color ORANGE Urine Appearance CLEAR Urine pH 5.5 Urine Specific Harshaw > 1.045 Urine Protein TRACE Urine Glucose (UA) NEG Urine Ketones 1+ Urine Occult Blood NEG Urine Nitrite NEG Urine Bilirubin NEG Urine Urobilinogen POS Urine Leukocyte Esterase NEG Urine WBC (Auto) 1-5 /hpf Urine RBC (Auto) 0-4 /hpf Urine Hyaline Casts (Auto) 0 /lpf Urine Epithelial Cells (Auto) 5-10 /lpf Urine Bacteria (Auto) NEG Urine Opiates Screen POS Urine Methadone, Qualitative NEG Urine Barbiturates NEG Urine Phencyclidine (PCP) Level NEG Ur Amphetamine/Methamphetamine NEG MDMA (Ecstasy) Screen NEG Urine Benzodiazepines Screen POS Urine Cocaine Metabolite NEG Urine Marijuana (THC) NEG White Blood Count 9.80 K/uL Red Blood Count 4.06 M/uL Hemoglobin 13.5 g/dL Hematocrit 38.8 % Mean Corpuscular Volume 95.6 fL Mean Corpuscular Hemoglobin 33.3 pg Mean Corpuscular Hemoglobin Concent 34.8 g/dl Platelet Count 155 K/uL Mean Platelet Volume 10.1 fL Neutrophils (%) (Auto) 63.6 % Lymphocytes (%) (Auto) 25.7 % Monocytes (%) (Auto) 8.3 % Eosinophils (%) (Auto) 1.8 % Basophils (%) (Auto) 0.3 % Neutrophils # (Auto) 6.23 K/uL Lymphocytes # (Auto) 2.52 K/uL Monocytes # (Auto) 0.81 K/uL Eosinophils # (Auto) 0.18 K/uL Basophils # (Auto) 0.03 K/uL RDW Standard Deviation 48.6 fL RDW Coefficient of Variation 13.9 % Immature Granulocyte % (Auto) 0.3 % Immature Granulocyte # (Auto) 0.03 K/uL Sodium Level 139 mmol/L Potassium Level 3.7 mmol/L Chloride Level 109 mmol/L Carbon Dioxide Level 21 mmol/L Anion Gap 9.0 mmol/L Blood Urea Nitrogen 15 mg/dl Creatinine 0.87 mg/dl Est Creatinine Clear Calc Drug Dose 87.8 ml/min Estimated GFR () 108.0 Estimated GFR (Non- 93.2 BUN/Creatinine Ratio 17.2 Random Glucose 77 mg/dl Calcium Level 7.9 mg/dl Total Bilirubin 1.6 mg/dl Aspartate Amino Transf (AST/SGOT) 315 U/L Alanine Aminotransferase (ALT/SGPT) 169 U/L Alkaline Phosphatase 268 U/L Total Protein 7.3 gm/dl Albumin 2.8 gm/dl Globulin 4.5 gm/dl Albumin/Globulin Ratio 0.6 Bedside Glucose 77 mg/dl 76 mg/dl Test 12/25/17 15:31 12/25/17 15:42 White Blood Count 6.60 K/uL Red Blood Count 3.87 M/uL Hemoglobin 12.7 g/dL Hematocrit 37.3 % Mean Corpuscular Volume 96.4 fL Mean Corpuscular Hemoglobin 32.8 pg Mean Corpuscular Hemoglobin Concent 34.0 g/dl Platelet Count 158 K/uL Mean Platelet Volume 10.7 fL Neutrophils (%) (Auto) 59.7 % Lymphocytes (%) (Auto) 29.7 % Monocytes (%) (Auto) 7.7 % Eosinophils (%) (Auto) 2.4 % Basophils (%) (Auto) 0.3 % Neutrophils # (Auto) 3.94 K/uL Lymphocytes # (Auto) 1.96 K/uL Monocytes # (Auto) 0.51 K/uL Eosinophils # (Auto) 0.16 K/uL Basophils # (Auto) 0.02 K/uL RDW Standard Deviation 50.1 fL RDW Coefficient of Variation 14.2 % Immature Granulocyte % (Auto) 0.2 % Immature Granulocyte # (Auto) 0.01 K/uL Prothrombin Time 11.4 SECONDS Prothromb Time International Ratio 1.1 Activated Partial Thromboplast Time 27.6 SECONDS Partial Thromboplastin Ratio 1.1 Sodium Level 138 mmol/L Potassium Level 3.5 mmol/L Chloride Level 108 mmol/L Carbon Dioxide Level 24 mmol/L Anion Gap 6.0 mmol/L Blood Urea Nitrogen 13 mg/dl Creatinine 0.84 mg/dl Est Creatinine Clear Calc Drug Dose 92.0 ml/min Estimated GFR () 109.5 Estimated GFR (Non- 94.5 BUN/Creatinine Ratio 15.0 Random Glucose 86 mg/dl Calcium Level 8.0 mg/dl Total Bilirubin 1.2 mg/dl Aspartate Amino Transf (AST/SGOT) 236 U/L Alanine Aminotransferase (ALT/SGPT) 167 U/L Alkaline Phosphatase 246 U/L Total Protein 7.0 gm/dl Albumin 2.8 gm/dl Globulin 4.2 gm/dl Albumin/Globulin Ratio 0.7 Bedside Glucose 81 mg/dl Assessment & Plan 62 year old is transferred to the ICU with hemoptysis and SBO. The patient was seen by pulmonology today, with a bronchoscopy showing significant bleeding in the right lower lobe. Pulmonary and inpatient hospitalist team are in the process of coordinating transfer to a tertiary center for possible IR embolization procedure. In the meantime, the patient will be monitored closely in the ICU. Neuro -h/o narcotic/alcohol abuse-Ativan PRN for withdraw symptoms -h/o drug opioid dependence -h/o anxiety/depression Cards -H/o HTN -EKG--NSR, HR 94, Qtc 442 -Trops negative x1 -Hemodynamically stable on arrival to the ICU--will continue monitor closely Resp -Hemoptysis in the setting of bilateral pulmonary nodules -H/o COPD and tobacco use -Treating with IV solumedrol, Levaquin, dounebs -CT in 2010 showed nodules in the right lung, CT today was negative for PE, but showed bilateral pulmonary nodules -Followed by Pulmonology, was bronch'ed today by Dr. Cali--significant concern for intractable hemoptysis -Dr. Cali and the inpatient hospitalist arranged transfer to [facility]. GI -Presented with abdominal pain, treated for SBO -NPO, IVF, morphine for pain -Patient found to be Hep C positive -CT demonstrated hepatosteatosis, and LFT's were elevated -Cont. ulcer ppx--ppi -Cont. bowel regimen--miralax, milk and magnesia -Surgical history; cholecystectomy, appendectomy Renal/lytes -K 3.5, replete, normal Cr -Follow electrolyte abnormalities, replace when needed ID -Patient on Levaquin for pulm source -Negative lactic acid, WBC wnl Heme -Hbg stable at 12.7--cont. to follow H/H, record blood loss for hemoptysis DVT ppxcode status -Full code -actively bleeding--no indication for dvt ppx Resident Physician Supervision Note: Dr. Perales was resident physician during care of patient. I separately evaluated patient and did history and exam. I discussed the case with the resident and generally agree with the findings and plan. I evaluated the patient in the ICU, he required supplemental oxygen but could speak in full sentences. He was approaching massive hemoptysis with at least 50 mL's of blood he was coughing up. I verbally consented the patient to elective orotracheal intubation, bronchoscopy with possible bronchial rey placement, central venous access, blood transfusion, arterial line. I confirmed that the patient was indeed a full code. I discussed the case with Dr. Cali of pulmonary he had recently completed a bronchoscopy on the patient and was unable to obtain hemostasis and was in the process of referring the patient to a tertiary care center for possible interventional radiology intervention, he felt the bleeding was coming from the right lower lobe. In discussing the mode of transfer we discussed the options of helicopter transport versus ground ALS unit. The patient has a significant fear of helicopter transport, I think it is reasonable for him to be transported by ACLS I discussed if he were to decompensate the EMS unit would divert to the closest near nearest hospital or possible rendezvous with helicopter service. The patient opted for ground transport. I have personally spent 45 minutes of critical care time in the direct management of this patient. This is a life/limb threatening event. This includes time spent evaluating patient, direct bedside care, chart review, placing orders, interpretation of diagnostic studies, discussion with consultants, patient, and/or family members regarding treatment decisions, as well as other required patient management activities. This time is exclusive of all separately billable procedures, and teaching time and separate from and in addition to any other critical care service time. Documented By: Ellis Avila DO
[2017-12-25] MEDS ORDERED: NICO14DI5 TD (18:24)
[2017-12-25] MEDS ORDERED: IPRASOL4 INH (18:24)
--- NOTE | 2017-12-25 18:43 | Discharge Instructions ---
Discharge Instructions Date of Service December 25, 2017. Admission Reason for Admission: Hemoptysis, Small Bowel Obstruction Discharge Discharge Diagnosis / Problem: Hemoptysis, SBO, Presumed Hep C positive, COPD Discharge Goals Goal(s): Therapeutic intervention Activity Recommendations Activity Limitations: per Instructions/Follow-up section (per accepting facility) . Instructions / Follow-Up Instructions / Follow-Up 62 year old male with history of multiple surgeries with adhesions, tobacco abuse, previous chronic alcohol use, who presents with 4 days of abdominal pain and 1 day of hemoptysis. Abdominal pain likely related to SBO vs Ileus. Patient presents with gross hemoptysis. Bronchoscopy performed and reported below, demonstrates concerns for active bleeding in right lower lobe. Patient continues to bleed and requires consideration for interventional radiology, which is not available and [facility]. Hemoptysis - Hb 14 on arrival; Hb 12 at discharge - Bronchoscopy on 12/25: active bleeding noted in the RLL. - Continues to have active hemoptysis post-bronchoscopy - Hemodynamically stable at discharge - Covered for inflammatory process with IV Solu-medrol, Duoneb q4h and IV levaquin - CT imaging below: multiple nodules but no obvious source of bleeding on CT. Report included below - Requires consideration for IR-guided embolism to stop bleeding. Small Bowel Obstruction - Due to multiple adhesions - Surgery followed during admission; recs appreciated - NPO, IVF - Morphine 4mg q4h for pain control Esophageal thickening on CT: - With history of alcohol use and smoking, consider esophageal varices vs esophageal malignancy. - Consult GI for consideration for EGD. Recommend addressing above issues. Remaining can be addressed as an outpatient. Transaminitis with preliminary positive Hep C screening - Recommend alcohol cessation. - Hepatitis C presumable positive. - Confirmatory testing pending COPD and history of smoking - Nicotine Patch - CT does show emphysematous change consistent with this. - Duoneb, IV Solu-medrol, IV Levaquin History of Alcohol Use - 15 units per week, per patient - On AWSS at-risk protocol. - Banana Bag DVT prophylaxis: SCD and TEDs. Pharmacological means are contra-indicated due to hemoptysis Code Status: Level I full Code Disposition: Requires urgent transfer to tertiary care facility to be evaluated for interventional radiology embolism Current Hospital Diet Patient's current hospital diet: NPO Discharge Diet Recommended Diet: N/A Procedures Procedures Performed: Bronchoscopy Procedure: Bronchoscopy, conscious sedation, bronchial washing Consent: Obtained through the patient placed into the chart Pre-procedural diagnosis: hemoptysis Post-procedural diagnosis: hemoptysis Start time: 1439 End time: 1449 Total time: 10 minutes Analgesia: 2% liquid lidocaine: Via nebulizer 4% gel lidocaine: Via right naris 2% liquid lidocaine: Via bronchoscopy Sedation: Versed IV: 125 mg Fentanyl IV: 5 g Procedure: The Olympus video bronchoscope was used for this procedure and passed down to the oropharynx and then retroflexed off the soft palate Maribel/posterior naris/posterior oropharynx: Minimal bleeding appreciated from the left naris is notably atrophied down the posterior nasal wall Bronchoscope was then passed down to the left and right naris anteriorly and there was a notable site of clotted minimal bleeding appreciated in the left naris above the inferior turbinate Glottis: Anatomically within normal limits, blood noted around the epiglottis Vocal cords: Proper abduction and abduction, anatomically within normal limits Subglottis/trachea/Cathleen: Anatomically within normal limits, diffuse blood along the posterior wall Right bronchial tree: Right mainstem bronchus: Anatomically within normal limits Right upper lobe: Anatomically within normal limits, minimal blood appreciated Bronchus intermedius: Anatomically within normal limits Right middle lobe: Anatomically within normal limits, notable bloody mucous plugs Right lower lobe: Anatomically within normal limits, notable blood appreciated coming from the basal pyramids and possible the lateral subsegment of the right lower lobe I did wash aggressively but was unable to clear these regions of blood Left bronchial tree: Left mainstem bronchus: Anatomically within normal limits Left upper lobe: Anatomically within normal limits Lingula: Anatomically within normal limits Left lower lobe: Anatomically within normal limits Findings: Minimal blood appreciated especially along the posterior wall on the left lower lobe but able to clear, no signs of active bleeding Bronchial alveolar lavage: Right lower lobe EBL: Active bleeding no blood loss secondary to the procedure itself bleeding from the left naris as well as right lower lobe Complications: None Follow-up: ASU <Electronically signed by Sam Cali MD> (CHEST FOR PE) ANGIO WITH CT DOSE: 571.13 mGy.cm HISTORY: 62 years-old Male presents with acute hemoptysis TECHNIQUE: Multiple CTA images of the chest were obtained after the intravenous administration of 94 ml Optiray 320. Coronal and sagittal MIPS were obtained from the axial data set and were submitted for review. A dose lowering technique was utilized adhering to the principles of ALARA. COMPARISON: Chest radiograph 12/25/2017, CT abdomen and pelvis 12/25/2017, CT chest 06/25/2010. FINDINGS: CTA: Heart is normal in size without pericardial effusion. Coronary arterial calcifications are noted. The thoracic aorta is normal in both course and caliber without aneurysm or dissection identified. Imaged great vessels appear patent. Mild to moderate mixed plaquing of the thoracic aorta. The pulmonary arterial tree is opacified to the level of the subsegmental branches and demonstrates no focal filling defects to suggest pulmonary thromboembolic disease. CT CHEST: No dominant thyroid nodule. No pathologically enlarged lymph nodes by CT size criteria. Mildly prominent AP window lymph node measures 1.8 x 0.8 cm. 8 mm subcarinal and 7 mm right hilar lymph nodes are also noted. Pleural thickening of the left lung apex. Moderate emphysema. Moderate bilateral bronchial wall thickening. There are multiple scattered solid pulmonary nodules of the lungs bilaterally measuring up to 4 mm along with normal-appearing per-fissural lymph nodes. (Please see bookmarks), for example solid 4 mm nodule the right upper lobe as seen on image 231 series 4. 4 mm groundglass nodule of the lingula, 138 series 4. Central airways demonstrate mild layering mucosal secretions. No pneumothorax, pleural effusion or overt pulmonary edema. Prior cholecystectomy. Hepatic steatosis. Suggestion of mild wall thickening of the distal esophagus. Bones appear intact. IMPRESSION: 1. No acute aortic pathology or evidence of pulmonary thromboembolic disease. 2. Moderate emphysema with bilateral bronchial wall thickening suggesting bronchitis. No lobar airspace consolidation. 3. Multiple bilateral solid pulmonary nodules, most of which measure in the 2-3 mm range and measure up to 4 mm. Additionally, there is a single groundglass 4 mm nodule of the inferior segment lingula. Follow-up guidelines are provided below. 4. Prior cholecystectomy. 5. Hepatic steatosis. 6. Mild wall thickening of the distal esophagus. This could be correlated with endoscopy if of further clinical concern. Please refer to below summary of Fleischner criteria recommendations for follow-up of incidental CT nodules (Festus Ruano, Guidelines for management of small pulmonary nodules detected on CT scans: A statement from the Fleischner Society, Radiology 237: [phone].) SOLID NODULES Multiple nodules size: <6 mm * Low risk patients: no routine follow-up * high risk patients: optional CT at 12 months Note: newly detected indeterminate nodule in persons 35 years of age or older. * Low risk patients: minimal or absent history of smoking and/or other known risk factors * high risk patients: history of smoking or of other known risk factors (e.g. first degree relative with lung cancer, or exposure to asbestos, radon, uranium) * if a nodule up to 8 mm is partly solid or is ground glass further follow-up is required after 24 months to exclude possible slow growing adenocarcinoma (HARSHIL) SUBSOLID NODULES Solitary pure ground-glass nodule * nodule size <6 mm - no CT follow-up required * nodule size >=6 mm - follow-up CT at 6-12 months, then every 2 years until 5 years The above report was generated using voice recognition software. It may contain grammatical, syntax or spelling errors. Pending Studies Studies pending at discharge: yes List of pending studies: Requires outpatient EGD for esophageal thickening Medical Emergencies . Who to Call and When: Medical Emergencies: If at any time you feel your situation is an emergency, please call 911 immediately. . Non-Emergent Contact Non-Emergency issues call your: Primary Care Provider . . "Provider Documentation" section prepared by Brian Coyne. .
[2017-12-25] MEDS ORDERED: MoRPHine SULFATE 4 MG/ML 1 ML CARP\\VIAL IV ONE (18:45)
--- NOTE | 2017-12-25 19:13 | Discharge Summary ---
Discharge Summary Date of Service December 25, 2017. Discharge Summary Admission Date: December 25, 2017 at 05:27 Discharge Date: December 25, 2017 Discharge Disposition: Acute care facility ([facility]) Principal Diagnosis: hemoptysis Immunizations: Have You Had Influenza Vaccine: Unknown History of Tetanus Vaccine?: Unknown History of Pneumococcal: Unknown History of Hepatitis B Vaccine: Unknown Procedures: Bronchoscopy Procedure Note Procedure: Bronchoscopy, conscious sedation, bronchial washing Consent: Obtained through the patient placed into the chart Pre-procedural diagnosis: hemoptysis Post-procedural diagnosis: hemoptysis Start time: 1439 End time: 1449 Total time: 10 minutes Analgesia: 2% liquid lidocaine: Via nebulizer 4% gel lidocaine: Via right naris 2% liquid lidocaine: Via bronchoscopy Sedation: Versed IV: 125 mg Fentanyl IV: 5 g Procedure: The [employer] video bronchoscope was used for this procedure and passed down to the oropharynx and then retroflexed off the soft palate Maribel/posterior naris/posterior oropharynx: Minimal bleeding appreciated from the left naris is notably atrophied down the posterior nasal wall Bronchoscope was then passed down to the left and right naris anteriorly and there was a notable site of clotted minimal bleeding appreciated in the left naris above the inferior turbinate Glottis: Anatomically within normal limits, blood noted around the epiglottis Vocal cords: Proper abduction and abduction, anatomically within normal limits Subglottis/trachea/Cathleen: Anatomically within normal limits, diffuse blood along the posterior wall Right bronchial tree: Right mainstem bronchus: Anatomically within normal limits Right upper lobe: Anatomically within normal limits, minimal blood appreciated Bronchus intermedius: Anatomically within normal limits Right middle lobe: Anatomically within normal limits, notable bloody mucous plugs Right lower lobe: Anatomically within normal limits, notable blood appreciated coming from the basal pyramids and possible the lateral subsegment of the right lower lobe I did wash aggressively but was unable to clear these regions of blood Left bronchial tree: Left mainstem bronchus: Anatomically within normal limits Left upper lobe: Anatomically within normal limits Lingula: Anatomically within normal limits Left lower lobe: Anatomically within normal limits Findings: Minimal blood appreciated especially along the posterior wall on the left lower lobe but able to clear, no signs of active bleeding Bronchial alveolar lavage: Right lower lobe EBL: Active bleeding no blood loss secondary to the procedure itself bleeding from the left naris as well as right lower lobe Complications: None Follow-up: [facility] <Electronically signed by Sam Cali MD> (CHEST FOR PE) ANGIO WITH CT DOSE: 571.13 mGy.cm HISTORY: 62 years-old Male presents with acute hemoptysis TECHNIQUE: Multiple CTA images of the chest were obtained after the intravenous administration of 94 ml Optiray 320. Coronal and sagittal MIPS were obtained from the axial data set and were submitted for review. A dose lowering technique was utilized adhering to the principles of ALARA. COMPARISON: Chest radiograph 12/25/2017, CT abdomen and pelvis 12/25/2017, CT chest 06/25/2010. FINDINGS: CTA: Heart is normal in size without pericardial effusion. Coronary arterial calcifications are noted. The thoracic aorta is normal in both course and caliber without aneurysm or dissection identified. Imaged great vessels appear patent. Mild to moderate mixed plaquing of the thoracic aorta. The pulmonary arterial tree is opacified to the level of the subsegmental branches and demonstrates no focal filling defects to suggest pulmonary thromboembolic disease. CT CHEST: No dominant thyroid nodule. No pathologically enlarged lymph nodes by CT size criteria. Mildly prominent AP window lymph node measures 1.8 x 0.8 cm. 8 mm subcarinal and 7 mm right hilar lymph nodes are also noted. Pleural thickening of the left lung apex. Moderate emphysema. Moderate bilateral bronchial wall thickening. There are multiple scattered solid pulmonary nodules of the lungs bilaterally measuring up to 4 mm along with normal-appearing per-fissural lymph nodes. (Please see bookmarks), for example solid 4 mm nodule the right upper lobe as seen on image 231 series 4. 4 mm groundglass nodule of the lingula, 138 series 4. Central airways demonstrate mild layering mucosal secretions. No pneumothorax, pleural effusion or overt pulmonary edema. Prior cholecystectomy. Hepatic steatosis. Suggestion of mild wall thickening of the distal esophagus. Bones appear intact. IMPRESSION: 1. No acute aortic pathology or evidence of pulmonary thromboembolic disease. 2. Moderate emphysema with bilateral bronchial wall thickening suggesting bronchitis. No lobar airspace consolidation. 3. Multiple bilateral solid pulmonary nodules, most of which measure in the 2-3 mm range and measure up to 4 mm. Additionally, there is a single groundglass 4 mm nodule of the inferior segment lingula. Follow-up guidelines are provided below. 4. Prior cholecystectomy. 5. Hepatic steatosis. 6. Mild wall thickening of the distal esophagus. This could be correlated with endoscopy if of further clinical concern. Please refer to below summary of Fleischner criteria recommendations for follow-up of incidental CT nodules (Festus Ruano, Guidelines for management of small pulmonary nodules detected on CT scans: A statement from the Fleischner Society, Radiology 237: [phone].) SOLID NODULES Multiple nodules size: <6 mm * Low risk patients: no routine follow-up * high risk patients: optional CT at 12 months Note: newly detected indeterminate nodule in persons 35 years of age or older. * Low risk patients: minimal or absent history of smoking and/or other known risk factors * high risk patients: history of smoking or of other known risk factors (e.g. first degree relative with lung cancer, or exposure to asbestos, radon, uranium) * if a nodule up to 8 mm is partly solid or is ground glass further follow-up is required after 24 months to exclude possible slow growing adenocarcinoma (HARSHIL) SUBSOLID NODULES Solitary pure ground-glass nodule * nodule size <6 mm - no CT follow-up required * nodule size >=6 mm - follow-up CT at 6-12 months, then every 2 years until 5 years The above report was generated using voice recognition software. It may contain grammatical, syntax or spelling errors. Electronically signed by: Tj Steen M.D. 12/25/2017 7:29 AM Dictated Date/Time: 12/25/2017 7:19 AM ABD/PELVIS IV CONTRAST ONLY CLINICAL HISTORY: 62 years-old Male presenting with lower abd pain, mult ORs. TECHNIQUE: Multidetector CT of the abdomen and pelvis was performed after the administration of intravenous contrast. IV contrast: 94 mL of Optiray 320. A dose lowering technique was used consistent with the principles of ALARA (as low as reasonably achievable). COMPARISON: 04/26/2014. CT DOSE (mGy.cm): The estimated cumulative dose is 571.13 inclusive of the CTA chest. 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 Lung bases: Bronchial wall thickening. No focal infiltrate. Trace emphysematous changes. Normal heart size. Mitral annular calcification. No pericardial or pleural effusion. Liver: Normal morphology. Density suggestive of hepatic steatosis. No focal lesion. Patent hepatic vasculature. Biliary: Mild biliary ductal prominence likely a reservoir effect in the post cholecystectomy state. Gallbladder surgically absent. Pancreas: Mild parenchymal atrophy. Mild prominence of the pancreatic duct the level of the pancreatic head without evidence of an obstructing mass or calculus. Spleen: Deformed appearance of the spleen may suggest splenosis or prior injury or infarct. Adrenal glands: Normal. Kidneys and ureters: Normal. No hydronephrosis. Bladder: Incompletely evaluated secondary to underdistention. Pelvic organs: Prostate enlargement likely secondary to benign prostatic hyperplasia. Bowel: Diverticulosis of the sigmoid and distal descending colon. A suture line may be present in the sigmoid colon versus curvilinear calcification (series 6 image 324). No colonic wall thickening or pericolonic inflammatory change. Fluid in the rectum may suggest a diarrheal state. Mild wall thickening of the distal esophagus. Small duodenal diverticula may be present at the level of the pancreatic head. Proximal small bowel is distended measuring up to 4.3 cm in diameter. No evidence of wall thickening or perienteric inflammatory change. Small bowel is dilated to the level of the mid abdomen (series 6 image 177). No gross evidence of mass or inflammatory change at this site. Presumably this may represent a site of adhesions. Several nondistended loops of small bowel in the mid to lower abdomen are in direct apposition with the anterior peritoneum, which may suggest adhesions in this region. Peritoneal cavity: No free fluid or intraperitoneal gas. Lymph nodes: No enlarged lymph nodes in the abdomen or pelvis. Vasculature: Atherosclerosis of the normal caliber abdominal aorta. IVC patent. Abdominal wall: Diastasis of the rectus abdominis. Postsurgical changes of the ventral abdominal wall with multiple radiodense sutures. Several curvilinear metallic foreign bodies may also represent suture material (series 6 image 270). Musculoskeletal: Postsurgical changes of the right femoral neck and proximal metadiaphysis from prior intramedullary nail fixation. Mild degenerative changes of the lower lumbar spine. IMPRESSION: 1. Proximal small bowel distention to the level of the mid abdomen concerning for small bowel obstruction secondary to adhesions. 2. Postsurgical changes of the abdominal wall with several curvilinear metallic foreign bodies likely representing suture material as marked on the images. 3. Bronchial wall thickening and trace emphysematous changes at the lung bases may suggest smoking related lung injury. Electronically signed by: Jakob Gillette M.D. 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 Abdominal pain likely related to SBO vs Ileus. Patient presents with gross hemoptysis. Bronchoscopy performed and reported below, demonstrates concerns for active bleeding in right lower lobe. Patient continues to bleed and requires consideration for interventional radiology, which is not available and [facility]. Hemoptysis - Hb 14 on arrival; Hb 12 at discharge - Bronchoscopy on 12/25: active bleeding noted in the RLL. - Continues to have active hemoptysis post-bronchoscopy - Hemodynamically stable at discharge - Covered for inflammatory process with IV Solu-medrol, Duoneb q4h and IV levaquin - CT imaging below: multiple nodules but no obvious source of bleeding on CT. Report included below - Requires consideration for IR-guided embolism to stop bleeding. Small Bowel Obstruction - Due to multiple adhesions - Surgery followed during admission; recs appreciated - NPO, IVF - Morphine 4mg q4h for pain control Esophageal thickening on CT: - With history of alcohol use and smoking, consider esophageal varices vs esophageal malignancy. - Consult GI for consideration for EGD. Recommend addressing above issues. Remaining can be addressed as an outpatient. Transaminitis with preliminary positive Hep C screening - Recommend alcohol cessation. - Hepatitis C presumable positive. - Confirmatory testing pending COPD and history of smoking - Nicotine Patch - CT does show emphysematous change consistent with this. - Duoneb, IV Solu-medrol, IV Levaquin History of Alcohol Use - 15 units per week, per patient - On AWSS at-risk protocol. - Banana Bag DVT prophylaxis: SCD and TEDs. Pharmacological means are contra-indicated due to hemoptysis Code Status: Level I full Code Disposition: Requires urgent transfer to tertiary care facility to be evaluated for interventional radiology embolism or other procedures to cease bleeding Total Time Spent: Greater than 30 minutes (>60mins critical care in assessing/ arranging discharge/etc) This includes examination of the patient, discharge planning, medication reconciliation, and communication with other providers. Discharge Instructions Please refer to the electronic Patient Visit Report (Discharge Instructions) for additional information.
[2017-12-25] MEDS ORDERED: METHYLPREDNISOLONE IV 60 MG in SYRINGE 0 ML IV SCH (20:00)
[2017-12-25] MEDS ORDERED: PANTOprazole INJ 40 MG in SYRINGE 0 ML IV SCH (21:00)
[2017-12-25] MEDS ORDERED: IPRATROPIUM BROMIDE/ALBUTEROL respimat INH INH SCH (21:00)
[2017-12-26] MEDS ORDERED: LEVOFLOXACIN / D5W 750 MG in PREMIXED IN D5W 150 ML IV SCH (09:00)
[2017-12-26] MEDS ORDERED: THIAMINE HCL INJ 100 MG in SYRINGE 9 ML IV SCH (09:00)
[2017-12-28 13:58] LABS: HEPATITIS C VIRAL RNA BY PCR 88300 IU/ML (<15); HEPATITIS C VIRAL RNA(LOG) PCR 4.95 LOG IU/ML (<1.18)
== END 2017-12-25 22:48 | disposition short-term general hospital (02) | DRG 167 ==
LOC: EDBD 01:39 → C.EDB 01:40 → C.2T 05:27 → ENRESERV 05:57 → C.MSICU 17:29
PROVIDERS: ADMIT Hospitalist; ATTEND Family Medicine
PROC: 0BJL8ZZ Inspection of Left Lung, Via Natural or Artificial Opening Endoscopic (ICD-10-PCS; principal; 2017-12-25 14:00)
PROC: 0B9F8ZZ Drainage of Right Lower Lung Lobe, Via Natural or Artificial Opening Endoscopic (ICD-10-PCS; principal; 2017-12-25 14:00)
DX: R04.89 Hemorrhage from other sites in respiratory passages (principal); K56.51 Intestinal adhesions [bands], with partial obstruction; B19.20 Unspecified viral hepatitis C without hepatic coma; R91.8 Other nonspecific abnormal finding of lung field; R93.3 Abnormal findings on diagnostic imaging of other parts of digestive tract; I10 Essential (primary) hypertension; F10.10 Alcohol abuse, uncomplicated; F17.210 Nicotine dependence, cigarettes, uncomplicated; J43.9 Emphysema, unspecified; Z87.19 Personal history of other diseases of the digestive system; Z90.49 Acquired absence of other specified parts of digestive tract; Z98.0 Intestinal bypass and anastomosis status; Z98.890 Other specified postprocedural states; Z91.018 Allergy to other foods